=== PATIENT | female | born 1985 | race Caucasian/White ===

== ENCOUNTER 2020-01-27 18:40 | Emergency (ER) | payer OTHER, MEDICAID ==
[~2020-01-27] VITALS: Ht 170.2 cm; Wt 69.4 kg
[2020-01-27] MEDS ORDERED: PERCOCET 10-321 EACH PO (18:50)
[2020-01-27] MEDS ORDERED: OMEPRAZOLE 20 M20 M1 PO (18:51)
[2020-01-27] MEDS ORDERED: PANCREALIPASE (18:53)
[2020-01-27] MEDS ORDERED: ZOFRAN4 MG PO (18:53)
[2020-01-27 19:13] VITALS: BP 132/89
== END 2020-01-27 19:10 | disposition left against medical advice (07) ==
LOC: M.ERS 18:40
DX: Z53.21 Procedure and treatment not carried out due to patient leaving prior to being seen by health care provider (principal)